=== PATIENT | male | born 1970 | race Two or more races ===

== ENCOUNTER 2021-11-11 22:11 | Emergency (ER) | payer MEDICAID, SELFPAY ==
[2021-11-11 22:18] VITALS: BP 94/51; PULSE 130; RESP 16; TEMP 37; O2SAT 99
--- NOTE | 2021-11-11 22:18 | ED_ITS ---
HPI - Overdose General Chief Complaint: Overdose Stated Complaint: overdose Source: patient Mode of arrival: ambulatory Limitations: no limitations History of Present Illness HPI Narrative: 51-year-old male presents to the emergency department stating that he feels like he is dying because he took heroin, cocaine and Suboxone together. complaint: accidental overdose Onset (ago): hour(s) (Within the hour of arrival) Context: Accidental Overdose: wanted to get high Associated symptoms: paranoia and palpitations Treatments Prior to Arrival: none Related Data Allergies Allergy/AdvReac Type Severity Reaction Status Date / Time No Known Allergies Allergy Unverified 05/31/20 15:02 Review of Systems Review of Systems: Constitutional: No Fever, No Chills ENT/Mouth: No sore throat, No Rhinorrhea Eyes: No Eye Pain, No Swelling, No Redness Cardiovascular: Positive palpitations, No Chest Pain, No SOB Respiratory: No Cough, No Sputum Gastrointestinal: No Nausea, No Vomiting, No Diarrhea, No abdominal Pain Genitourinary: No Dysuria, No Hematuria Musculoskeletal: No joint pain, No Myalgias, No Joint Swelling Skin: No Skin Lesions, No rash Neuro: No Weakness, No Numbness, No Loss of Consciousness, No Dizziness, No Headache Psych: Positive substance abuse, positive Anxiety, No Depression, No SI/HI/AH/VH Heme/Lymph: No Bruising, No Bleeding,No Lymphadenopathy Endocrine: No Polyuria, No Polydipsia Yes all other systems are reviewed and are negative [facility] Past Medical History Attestation statement: The following information was validated with the patient. Source: old records reviewed Social History Social History Advance Directives: No Physical Exam Vital Signs: Vital Signs: Last Vital Signs Temp 97.8 F 11/11/21 22:38 Pulse 83 11/12/21 00:10 Resp 20 11/12/21 00:10 BP 126/72 11/12/21 00:10 Pulse Ox 98 11/12/21 00:10 BMI result Body Mass Index 33.2 Appearance: Alert. Oriented X3. Moderate emotional distress and anxiety. Eyes: Pupils equal, round and reactive to light. Sclera nonicteric. ENT: Pharynx normal. Moist mucous membranes. Neck: Normal inspection. Neck supple. CVS: Tachycardic heart rate and rhythm. Apical pulse equal pulses to extremities Respiratory: No respiratory distress. Breath sounds normal. Abdomen: Soft and nontender. Skin: Skin warm and dry. Normal skin color. Normal skin turgor. Extremities: Gait well-balanced well coordinated. Neuro: No motor deficit. No sensory deficit. Cranial nerves 2-12 intact. Course Course Course Narrative: 51-year-old male presents with polysubstance abuse. Stated that he took heroin, cocaine and Suboxone together and feels like he is dying. Currently tachycardic, without focal neural deficits. Able to follow directions. Will give Ativan for anxiety and order EKG. 2330 EKG indicates normal sinus rhythm with prolonged QT. no indication of ST elevation or depression. 00:00 patient is sleeping, even unlabored respiration, heart rate in the 80s. Arousable to touch, repositioning self as needed for comfort. Plan of care is to metabolize to freedom. MDM - Overdose MDM Narrative Medical decision making narrative: Heroin and Suboxone ingestion Differential Diagnosis Differential diagnosis: Likely cocaine intoxication Medical Records Attestation: I reviewed the patient's medical records. ECG Data Attestation: I personally reviewed and interpreted this ECG as follows: ECG interpretation date: 11/11/21 ECG interpretation time: 23:30 Prior ECG tracings: not available for review Interpretation: Vent. rate 89 BPM VA interval 144 ms QRS duration 104 ms QT/QTc 402/489 ms P-R-T axes 62 19 36 Normal sinus rhythm Prolonged QT Abnormal ECG No previous ECGs available Discharge Plan Discharge Clinical Impression: Cocaine intoxication, Opioid abuse Patient Disposition: Home, Self-Care Instructions: Narcotic Use Disorder (ED), Cocaine Abuse (ED), Polysubstance Abuse (ED) Additional Instructions: Please consider detox. Thank you for choosing this emergency department for evaluation. Please follow-up with primary care physician as needed. Return to the emergency department for any new, concerning, or worsening symptoms.
--- NOTE | 2021-11-11 22:21 | ECG_ITS ---
Test Reason : OVERDOSE Blood Pressure : / mmHG Vent. Rate : 089 BPM Atrial Rate : 089 BPM P-R Int : 144 ms QRS Dur : 104 ms QT Int : 402 ms P-R-T Axes : 062 019 036 degrees QTc Int : 489 ms Normal sinus rhythm Prolonged QT Abnormal ECG No previous ECGs available Referred By: Maira Anaya Electronically Signed By:Zheng Figueroa
[2021-11-11 22:38] VITALS: BP 166/83; PULSE 88; RESP 18; TEMP 36.6; O2SAT 97; BMI 33.2
[2021-11-11] MEDS: LORazepam 2 MG/ML VIAL IVPUSH (22:49)
[2021-11-12] VITALS (9 sets, daily range): BP systolic 119–158; BP diastolic 69–77; PULSE 63–87; RESP 12–20; TEMP 36.3; O2SAT 93–99
--- NOTE | 2021-11-12 01:10 | PC.NURSE ---
pt sleeping needs loud verbal to arrouse. vitals stable, skin warm and dry.
--- NOTE | 2021-11-12 06:34 | PC.NURSE ---
pt states he is feeling better and is ready to go home. pt is alert and oriented, pt understands the situation. pt denies s1 or h1
== END 2021-11-12 08:03 | disposition home or self-care (01) ==
PROVIDERS: Emergency Provider Emergency Medicine
DX: T40.1X1A Poisoning by heroin, accidental (unintentional), initial encounter (principal); Y92.9 Unspecified place or not applicable; T40.5X1A Poisoning by cocaine, accidental (unintentional), initial encounter; F11.129 Opioid abuse with intoxication, unspecified; F14.19 Cocaine abuse with unspecified cocaine-induced disorder; Z71.51 Drug abuse counseling and surveillance of drug abuser
CPT/HCPCS: 93005; 96374; 99285; J2060